=== PATIENT | female | born 1985 | race Caucasian/White ===

== ENCOUNTER 2017-12-07 18:46 | Outpatient (CLI) | payer BC ==
[~2017-12-07] VITALS: Ht 157.5 cm; Wt 83.1 kg
== END 2017-12-07 20:20 | disposition home or self-care (01) ==
LOC: LDOP 18:46
PROVIDERS: ATTEND Obstetrics & Gynecology
DX: O47.1 False labor at or after 37 completed weeks of gestation (principal); O34.219 Maternal care for unspecified type scar from previous cesarean delivery; Z3A.40 40 weeks gestation of pregnancy
CPT/HCPCS: 59025; 99211; G0463

== ENCOUNTER 2017-12-21 17:56 | Outpatient (CLI) | payer BC ==
[~2017-12-21] VITALS: Ht 157.5 cm; Wt 83.2 kg
[2017-12-21] MEDS ORDERED: PREN1TAB60 PO (18:08)
[2017-12-21 18:10] VITALS: BP 127/84
== END 2017-12-21 20:46 | disposition home or self-care (01) ==
LOC: LDOP 17:56
PROVIDERS: ATTEND Obstetrics & Gynecology
DX: O26.893 Other specified pregnancy related conditions, third trimester (principal); R10.9 Unspecified abdominal pain; Z3A.37 37 weeks gestation of pregnancy
CPT/HCPCS: 59025; 99211; G0463

== ENCOUNTER 2017-12-22 10:54 | Inpatient (IN) | payer BC ==
[~2017-12-22] VITALS: Ht 157.5 cm; Wt 83.2 kg
[~2017-12-22 10:54] MED LIST: PREN1TAB60 PO
[2017-12-22] MEDS ORDERED: OXYTOCIN 30U/ 0.9% NaCL 500ML 500 ML IV ONE (11:06)
[2017-12-22] MEDS: D5%-LACTATED RINGERS 1,000 ML IV SCH ×2 (11:06→19:06)
[2017-12-22] MEDS: LACTATED RINGERS 1,000 ML IV SCH ×3 (11:15→20:12)
[2017-12-22] MEDS ORDERED: ONDANSETRON 2MG/ML, 2ML IVPush PRN ×2 (11:30→20:30)
[2017-12-22] MEDS ORDERED: FENTANYL PF 100 MCG/2ML IVPush PRN (11:30)
[2017-12-22] MEDS ORDERED: TERBUTALINE 1 MG/ML, 1ML IVPush PRN (11:30)
[2017-12-22] MEDS ORDERED: FENTANYL PF 100 MCG/2ML IV PRN (11:30)
[2017-12-22] MEDS ORDERED: OXYTOCIN 30U/ 0.9% NaCL 500ML 500 ML ONE ×2 (11:34→20:57)
[2017-12-22 11:47] LABS: BASOPHILS # (AUTO) 0.01 x10^3/uL (0-0.1); BASOPHILS % (AUTO) 0 % (0-1); EOSINOPHILS # (AUTO) 0.06 x10^3/uL (0-0.4); EOSINOPHILS % (AUTO) 1 % (1-7); LYMPHOCYTES # (AUTO) 1.28 x10^3/uL (1-3.4); LYMPHOCYTES % (AUTO) 15 % (22-44); MD NO; MEAN CORPUSCULAR HEMOGLOBIN 30.7 pg (27.0-34.8); MEAN CORPUSCULAR HGB CONC 33.8 g/dL (32.4-35.8); MEAN CORPUSCULAR VOLUME 90.8 fL (80-100); MEAN PLATELET VOLUME 9.4 fL (7.4-10.4); MONOCYTES # (AUTO) 0.41 x10^3/uL (0.2-0.8); MONOCYTES % (AUTO) 5 % (2-9); NEUTROPHILS % (AUTO) 80 % (42-75); PLATELET COUNT 144 x10^3/uL (130-400); RED BLOOD COUNT 3.61 x10^6/uL (3.82-5.3); RED CELL DISTRIBUTION WIDTH 15.3 % (9.6-15.2)
[2017-12-22 11:52] LABS: MICROSCOPIC INDICATED
[2017-12-22 11:54] LABS: ALANINE AMINOTRANSFERASE 16 U/L (12-78); ALBUMIN 2.5 g/dL (3.4-5.0); ANION GAP 10 mmol/L (5-15); CALCIUM 8.3 mg/dL (8.5-10.1); CHLORIDE 108 mmol/L (98-107); CREATININE 0.68 mg/dL (0.55-1.02)
[2017-12-22] MEDS ORDERED: NEWBORN KIT ONE (11:55)
[2017-12-22 11:57] LABS: ALKALINE PHOSPHATASE 127 U/L (45-117); BILIRUBIN,TOTAL 0.4 mg/dL (0.2-1.0); TOTAL PROTEIN 6.1 g/dL (6.4-8.2)
[2017-12-22 11:58] LABS: BILIRUBIN, DIRECT < 0.1 mg/dL (0.1-0.2)
[2017-12-22] MEDS ORDERED: FENTANYL/BUPIV./NS/PF 250 ML EPIDCONT ONE (12:22)
[2017-12-22] MEDS ORDERED: BUPIVACAINE/PF 0.25% ONE (12:22)
[2017-12-22] MEDS ORDERED: OXYTOCIN 30U/ 0.9% NaCL 500ML 500 ML IV PRN (15:20)
[2017-12-22] MEDS: OXYTOCIN 30U/ 0.9% NaCL 500ML 500 ML IV SCH (19:39)
[2017-12-22] MEDS ORDERED: METHYLERGONOVINE 0.2 MG/ML IM PRN (20:00)
[2017-12-22] MEDS ORDERED: ONDANSETRON 2MG/ML, 2ML IV PRN (20:00)
[2017-12-22] MEDS ORDERED: MISOPROSTOL 200 MCG TABLET PR PRN (20:00)
[2017-12-22] MEDS ORDERED: DOCUSATE 100 MG CAPSULE PO PRN (20:00)
[2017-12-22] MEDS ORDERED: OXYcodone/APAP 5/325MG TABLET PO PRN ×2 (20:00)
[2017-12-22 20:11] VITALS: BP 130/62
[2017-12-22] MEDS: FENTANYL/BUPIV./NS/PF 250 ML EPIDCONT SCH (20:12)
[2017-12-22] MEDS ORDERED: EPHEDRINE 50 MG/ML, 1ML IVPush PRN (20:30)
[2017-12-22] MEDS ORDERED: NALOXONE 0.4 MG/ML, 1ML IVPush PRN (20:30)
[2017-12-22] MEDS ORDERED: DIPHENHYDRAMINE 50 MG/ML, 1ML IVPush PRN (20:30)
[2017-12-22] MEDS ORDERED: LACTATED RINGERS 1,000 ML IVBOLUS PRN (20:30)
[2017-12-22] MEDS ORDERED: IBUPROFEN 600 MG TABLET ONE (20:56)
[2017-12-22] MEDS: IBUPROFEN 600 MG TABLET PO PRN (20:59)
[2017-12-22 22:00] VITALS: BP 133/83
[2017-12-23 02:00] VITALS: BP 128/78
[2017-12-23 03:38] LABS: BASOPHILS # (AUTO) 0.02 x10^3/uL (0-0.1); BASOPHILS % (AUTO) 0 % (0-1); EOSINOPHILS # (AUTO) 0.11 x10^3/uL (0-0.4); EOSINOPHILS % (AUTO) 1 % (1-7); LYMPHOCYTES # (AUTO) 1.99 x10^3/uL (1-3.4); LYMPHOCYTES % (AUTO) 16 % (22-44); MD NO; MEAN CORPUSCULAR HEMOGLOBIN 30.9 pg (27.0-34.8); MEAN PLATELET VOLUME 9.4 fL (7.4-10.4); MONOCYTES % (AUTO) 8 % (2-9); NEUTROPHILS # (AUTO) 9.37 x10^3/uL (1.8-6.8); NEUTROPHILS % (AUTO) 75 % (42-75); PLATELET COUNT 143 x10^3/uL (130-400); RED BLOOD COUNT 3.55 x10^6/uL (3.82-5.3); RED CELL DISTRIBUTION WIDTH 15.2 % (9.6-15.2)
[2017-12-23] MEDS: LACTATED RINGERS 1,000 ML IV SCH ×2 (04:12→12:12)
[2017-12-23] MEDS: OXYTOCIN 30U/ 0.9% NaCL 500ML 500 ML IV SCH ×2 (05:39→15:39)
[2017-12-23 07:00] VITALS: BP 129/84
[2017-12-23] MEDS: IBUPROFEN 600 MG TABLET PO PRN ×2 (07:51→16:56)
[2017-12-23] MEDS: PRENATAL VIT/IRON/FA 1 EACH TABLET PO SCH (09:00)
[2017-12-23 12:00] VITALS: BP 120/74
[2017-12-23] MEDS: FENTANYL/BUPIV./NS/PF 250 ML EPIDCONT SCH (17:02)
[2017-12-23 21:00] VITALS: BP 115/67
[2017-12-24] MEDS: OXYTOCIN 30U/ 0.9% NaCL 500ML 500 ML IV SCH (01:39)
[2017-12-24] MEDS: IBUPROFEN 600 MG TABLET PO PRN (08:13)
[2017-12-24] MEDS: PRENATAL VIT/IRON/FA 1 EACH TABLET PO SCH (08:13)
[2017-12-24 08:30] VITALS: BP 126/79
[2017-12-24] MEDS ORDERED: IBUP-1222 PO (10:33)
== END 2017-12-24 12:09 | disposition home or self-care (01) | DRG 775 ==
LOC: LDIP 10:54 → 2NW 21:40
PROVIDERS: ADMIT Obstetrics & Gynecology; ATTEND Obstetrics & Gynecology
PROC: 10E0XZZ Delivery of Products of Conception, External Approach (ICD-10-PCS; principal; 2017-12-22)
PROC: 0HQ9XZZ Repair Perineum Skin, External Approach (ICD-10-PCS; 2017-12-22)
PROC: 3E0R3BZ Introduction of Anesthetic Agent into Spinal Canal, Percutaneous Approach (ICD-10-PCS; 2017-12-22)
PROC: 00HU33Z Insertion of Infusion Device into Spinal Canal, Percutaneous Approach (ICD-10-PCS; 2017-12-22)
PROC: 10907ZC Drainage of Amniotic Fluid, Therapeutic from Products of Conception, Via Natural or Artificial Opening (ICD-10-PCS; 2017-12-22)
PROC: 0UQMXZZ Repair Vulva, External Approach (ICD-10-PCS; 2017-12-22)
DX: O34.211 Maternal care for low transverse scar from previous cesarean delivery (principal); O70.0 First degree perineal laceration during delivery; Z37.0 Single live birth; O71.82 Other specified trauma to perineum and vulva; O76 Abnormality in fetal heart rate and rhythm complicating labor and delivery; Z3A.38 38 weeks gestation of pregnancy
CPT/HCPCS: 36415; 80053; 81001; 82248; 82570; 84156; 84550; 85025; 86850; 86900; J2590; J3010; J7120